=== PATIENT | female | born 1950 | race Caucasian/White ===

== ENCOUNTER 2024-01-09 18:19 | Emergency (ER) | payer MEDICARE, OTHER, SELFPAY ==
--- NOTE | 2024-01-09 18:21 | ED.FEMALEGU ---
HPI - Female Genitourinary General Chief complaint: Urogenital-Female Stated complaint: UTI SYMPTOMS/EARS Time Seen by Provider: 01/09/24 18:20 Source: patient and family Mode of arrival: ambulatory Limitations: no limitations History of Present Illness HPI Narrative: Janet is a 73-year-old female patient presenting to the clinic today with complaints of possible UTI and ear pain pressure pulsating sensation-states she can hear her heartbeat in her ears. Also has associated dizziness but that has since resolved. No history of Meniere's disease in the past. Reports that she has a possible urinary tract infection. Has started with urinary frequency and urgency and burning when she goes pee. She reports no known fever but has had some chills. He history of Sjogrens. No history of hyperlipidemia Related Data Home Medications Medication Instructions Recorded Confirmed hydroxychloroquine 200 mg tablet 200 mg PO BID 01/09/24 01/09/24 levothyroxine 112 mcg tablet 112 mcg PO DAILY 01/09/24 01/09/24 Allergies Allergy/AdvReac Type Severity Reaction Status Date / Time codeine Allergy Unknown HIVES Verified 01/09/24 18:40 Sulfa (Sulfonamide Allergy Unknown Unknown Verified 01/09/24 18:40 Antibiotics) Review of Systems Review of Systems: Pertinent positives per HPI. Patient denies any fever, rash, headache, visual changes, cough, shortness of breath, chest pain, palpitations, nausea, vomiting, diarrhea, constipation, abdominal pain. PMFSH Family History Family History Father Malignant neoplasm of prostate Sibling Family history of dementia Family history of malignant neoplasm of breast in first degree relative Family history of malignant neoplasm of kidney Mother Family history of heart disease in male family member before age 55 Social History Social History Smoking status: Never smoker Alcohol intake: current Comments At the time of my signature, I reviewed and agree with the nursing past medical, surgical, social, and family history. There is no relevant family history pertinent to the patient complaint. Exam Narrative: General: Well-developed, well nourished, in no apparent distress Head: Normocephalic, atraumatic Eyes: Pupils equally round and reactive to light bilaterally, EOM intact, sclera and conjunctive clear, no discharge, lids normal Ears: TMs intact, mild bulging, opaque, ear canals clear, no drainage, grossly hearing normal. Nose: Nares patent, clear nasal discharge, moderate inflammation, no sinus tenderness. Mouth: Oral pharynx without lesions or masses, good dentition, MMM. Neck: Supple, trachea midline, no enlargement of anterior or posterior cervical nodes, no thyroid masses or goiter palpable. No carotid bruit or thrills palpable bilaterally Cardio: Regular rate and rhythm, s1 and s2 normal, no murmur appreciated. Resp: Clear to auscultation bilaterally, no rhonchi, rales, wheezing or rubs Abdomen: Soft, pliable, bowel sounds present in all quadrants, tender to palpation over the urinary bladder, no organomegly, no CVAT tenderness. Course Course Emergency Course: Portions of this record may have been created with voice recognition software. Level of Care: Express Care Visit Vital Signs Vital signs: Vital signs reviewed MDM - Female Genitourinary MDM Narrative Medical decision making narrative: At the time of visit patient is resting comfortably on the exam table. Patient appears to be nontoxic. Labs: Urinalysis is positive for 2+ leukocytes, nitrates, 2+ protein, 1+ blood, and trace ketone with a high specific gravity. Plan: I suspect patient has acute dizziness with pulsatile tinnitus and urinary tract infection. Symptoms may likely be due to an urinary tract infection so we will go ahead and treat infection with Augmentin. No bruits or
[2024-01-09 18:28] VITALS: BP 142/92; PULSE 102; RESP 16; TEMP 37.4; O2SAT 96
== END 2024-01-09 18:54 | disposition home or self-care (01) ==
PROVIDERS: Emergency Provider Nurse Practitioner Family
DX: N30.01 Acute cystitis with hematuria (principal); B96.20 Unspecified Escherichia coli [E. coli] as the cause of diseases classified elsewhere; H93.A3 Pulsatile tinnitus, bilateral; R42 Dizziness and giddiness; E03.9 Hypothyroidism, unspecified
CPT/HCPCS: 81003; 87077; 87086; 87186; 99213; G0463

== ENCOUNTER 2024-01-14 09:25 | Emergency (ER) | payer MEDICARE, OTHER, SELFPAY ==
--- NOTE | ~2024-01-14 | CT_ITS ---
EXAMINATION: CT cervical spine wo con DATE: 01/14/2024 10:53 INDICATION: Neck stiffness. Limited range of motion. Torticollis. TECHNIQUE: Computed tomography (CT) of the cervical spine was performed without intravenous contrast. Automated exposure control and iterative reconstruction technique were employed. The dose-length pro duct was 468.39 mGy-cm. COMPARISON: None FINDINGS: There is 7 degrees levocurvature of cervical spine. There is kyphosis of cervical spine. Th ere is 2 mm anterolisthesis of C4 on C5 and 2 mm retrolisthesis of C6 on C7. There is mild chronic an terior wedging of C6 vertebral body. There is moderately decreased disc height at C3-C4 and C4-C5, se verely decreased disc height at C5-C6 and C6-C7, and mildly decreased disc at C7-T1. The following di sc levels are specifically discussed: C2-C3: There is no uncovertebral joint osteoarthritis. There is severe bilateral facet joint osteoart hritis. There is mild left neural foraminal stenosis. There is no central canal stenosis. C3-C4: There is severe right and mild left uncovertebral joint osteoarthritis. There is severe bilate ral facet joint osteoarthritis. There is mild bilateral neural foraminal stenosis. There is mild cent ral canal stenosis. C4-C5: There is moderate right and severe left uncovertebral joint osteoarthritis. There is severe bi lateral facet joint osteoarthritis. There is mild bilateral neural foraminal stenosis. There is mild central canal stenosis. C5-C6: There is severe bilateral uncovertebral joint osteoarthritis. There is severe bilateral facet joint osteoarthritis. There is mild bilateral neural foraminal stenosis. There is mild central canal stenosis. C6-C7: There is severe bilateral uncovertebral joint osteoarthritis. There is moderate bilateral face t joint osteoarthritis. There is mild bilateral neural foraminal stenosis. There is mild central eli l stenosis. C7-T1: There is mild bilateral uncovertebral joint osteoarthritis. There is severe bilateral facet tee int osteoarthritis. There is mild bilateral neural foraminal stenosis. There is no central canal sten osis. IMPRESSION: 1. Severe cervical spondylosis. Reviewed, dictated and finalized at location A.
[2024-01-14 09:37] VITALS: BP 123/95; PULSE 98; RESP 18; TEMP 36.5; O2SAT 96
--- NOTE | 2024-01-14 09:51 | ED.GENADULT ---
HPI - General Adult General Chief complaint: Unspecified Stated complaint: stiff neck Time Seen by Provider: 01/14/24 09:51 Source: patient Mode of arrival: ambulatory Limitations: no limitations History of Present Illness HPI narrative: Janet is a 73-year-old female patient presenting to the emergency room with complaints of neck stiffness since Sunday. She reports she recently was treated for UTI in the [facility]. She is taking ciprofloxacin at this time. No headache. Related Data Home Medications Medication Instructions Recorded Confirmed hydroxychloroquine 200 mg tablet 200 mg PO BID 01/09/24 01/09/24 levothyroxine 112 mcg tablet 112 mcg PO DAILY 01/09/24 01/09/24 Allergies Allergy/AdvReac Type Severity Reaction Status Date / Time codeine Allergy Unknown HIVES Verified 01/14/24 09:48 Sulfa (Sulfonamide Allergy Unknown Unknown Verified 01/14/24 09:48 Antibiotics) Review of Systems Review of Systems: Pertinent positives per HPI. Patient denies any fever, chills, rash, headache, visual changes, dizziness, cough, runny nose, sore throat, shortness of breath, chest pain, palpitations, nausea, vomiting, diarrhea, constipation, abdominal pain, or any urinary issues. PMFSH Family History Family History Father Malignant neoplasm of prostate Sibling Family history of dementia Family history of malignant neoplasm of breast in first degree relative Family history of malignant neoplasm of kidney Mother Family history of heart disease in male family member before age 55 Social History Social History Smoking status: Never smoker Alcohol intake: current Comments At the time of my signature, I reviewed and agree with the nursing past medical, surgical, social, and family history. There is no relevant family history pertinent to the patient complaint. Exam Narrative: General: Well-developed, well nourished, in no apparent distress Head: Normocephalic, atraumatic Eyes: Pupils equally round and reactive to light bilaterally, EOM intact, sclera and conjunctive clear, no discharge, lids normal Ears: TMs intact and congested, ear canals clear, no drainage, grossly hearing normal. Nose: Nares patent, no discharge, no inflammation, no sinus tenderness. Mouth: Oropharynx without lesions or masses, good dentition, MMM. Neck: Supple, trachea midline, no enlargement of anterior or posterior cervical nodes, no thyroid masses or goiter palpable. Cardio: Regular rate and rhythm, s1 and s2 normal, no murmur appreciated. Resp: Clear to auscultation bilaterally anteriorly and posteriorly, no rhonchi, rales, wheezing or rubs Musculoskeletal: No deformity, non-tender to palpation, limited rom to the cervical spine- unable to full flex, hyperextend, or turn her head towards the right without significant pain, muscle strength strong and equal, peripheral pulse strong, no edema, no cyanosis, normal gait and station Course Course Emergency Course: Portions of this record may have been created with voice recognition software. Vital Signs Vital signs: Vital Signs Temperature 36.5 C 01/14/24 09:37 Pulse Rate 98 01/14/24 09:37 Respiratory Rate 18 01/14/24 09:37 Blood Pressure 123/95 H 01/14/24 09:37 Pulse Oximetry 96 01/14/24 09:37 Oxygen Delivery Room Air 01/14/24 09:37 Temperature 36.5 C 01/14/24 09:37 Pulse Rate 89 01/14/24 11:42 Respiratory Rate 17 01/14/24 11:42 Blood Pressure 144/77 H 01/14/24 11:42 Pulse Oximetry 98 01/14/24 11:42 Oxygen Delivery Room Air 01/14/24 09:37 Vital signs reviewed Medical Decision Making MDM Narrative Medical decision making narrative: At the time of visit patient is resting comfortably on the exam table. Patient appears to be nontoxic. Labs: CBC shows white blood cell count 7.9, H&H of 13.5 and 42.
[2024-01-14 10:28] LABS: Basophils Absolute Auto 0.1 K/mm3 (0.0-0.1); Basophils Percent Auto 0.8 % (0.2-1.2); Eosinophils Absolute Auto 0.1 K/mm3 (0-0.3); Eosinophils Percent Auto 1.3 % (0-4.4); Hematocrit 42.9 % (37.0-47.0); Hemoglobin 13.5 g/dL (12.0-15.0); Immature Granulocyte Absolute 0.02 K/mm3 (0.00-0.031); Immature Granulocyte Percent A 0.3 % (0-0.5); Lymphocytes Absolute Auto 0.94 K/mm3 (0.9-3.2); Lymphocytes Percent Auto 11.9 % (18.3-44.2); Mean Corpuscular HGB Conc 31.5 g/dl (32-36); Mean Corpuscular Hemoglobin 29.2 pg (26-34); Mean Corpuscular Volume 92.9 fl (80-100); Mean Platelet Volume 10.6 fl (7.4-10.4); Monocytes Absolute Auto 0.5 K/mm3 (0.1-0.6); Monocytes Percent Auto 6.8 % (2.6-8.5); Neutrophils Absolute Auto 6.2 K/mm3 (1.3-6.7); Neutrophils Percent Auto 78.9 % (45.5-73.1); Platelet Count Result 193 k/mm3 (150-375); Red Blood Count 4.62 M/mm3 (4.2-5.4); Red Cell Distribution Width 13.1 % (11.5-14.5); White Blood Count 7.9 K/mm3 (4.5-10.0)
[2024-01-14 10:35] LABS: Appearance Urine Clear (Clear); Bacteria Urine None Seen /hpf; Bilirubin Urine Negative (Negative); Blood Urine Negative (Negative); Color Urine Yellow (Yellow); Glucose Urine UA Negative (Negative); Ketones Urine Negative (Negative); Leukocyte Esterase Ur 1+ LEU/UL (Negative); Nitrate Urine Negative (Negative); Non Pathogenic Casts 0-2; Protein Urine Negative (Negative); RBC Urine 0-2 /hpf (0-2); Specific Grav Ur 1.015 (1.001-1.035); Squamous Epithelial Cell Urine None Seen /hpf (Few); Urobilinogen Urine 0.2 mg/dL (<2.0)
[2024-01-14 10:43] LABS: Alanine Aminotransferase 15 U/L (6-35); Albumin Level 4.7 g/dL (3.5-5.1); Alkaline Phosphatase 88 U/L (38-126); Anion Gap 6 mmol/L (4-12); Aspartate Amino Transferase 20 U/L (14-36); Bilirubin,Total 1.3 mg/dL (0.2-1.3); Blood Urea Nitrogen 15 mg/dL (7-17); Calcium 9.8 mg/dL (8.4-10.2); Carbon Dioxide 28 mmol/L (22-30); Chloride 107 mmol/L (98-107); Estimated CRCL calculation 66 ml/min; Estimated Glomerular Filt Rate > 60; Glucose 120 mg/dL (65-110); Potassium 3.9 mmol/L (3.4-5.0); Sodium 141 mmol/L (137-145)
[2024-01-14 10:45] LABS: Add Urine Microscopic? YES
--- NOTE | 2024-01-14 11:05 | PC.NURSE ---
Report given to Connie CARLTON, all questions answered
[2024-01-14 11:42] VITALS: BP 144/77; PULSE 89; RESP 17; O2SAT 98
[2024-01-14 12:58] VITALS: BP 129/76; PULSE 71; RESP 18; TEMP 36.8; O2SAT 99
== END 2024-01-14 12:59 | disposition home or self-care (01) ==
PROVIDERS: Emergency Provider Nurse Practitioner Family
DX: M43.6 Torticollis (principal); M47.812 Spondylosis without myelopathy or radiculopathy, cervical region; R82.998 Other abnormal findings in urine
CPT/HCPCS: 36415; 72125; 80053; 81001; 85025; 87086; 99284

== ENCOUNTER 2024-06-12 09:33 | Emergency (ER) | payer MEDICARE, OTHER, SELFPAY ==
[2024-06-12 09:47] VITALS: BP 127/69; PULSE 85; RESP 16; TEMP 36.4; O2SAT 98
--- NOTE | 2024-06-12 09:48 | ED.ABDPAIN ---
HPI - Abdominal Pain General Chief Complaint: Urogenital-Female Stated Complaint: Uti Symptoms Source: patient, RN notes reviewed and old records reviewed Mode of arrival: ambulatory Limitations: no limitations History of Present Illness HPI narrative: Patient presents with complaints of urinary frequency and burning that began yesterday. She has had 1 UTI in the past, states that this feels the same. She denies fever, chills, sweats. Denies nausea or vomiting. Denies any back pain or abdominal pain. Denies any ayanna hematuria. Related Data Home Medications Medication Instructions Recorded Confirmed hydroxychloroquine 200 mg tablet 200 mg PO BID 01/09/24 06/12/24 levothyroxine 112 mcg tablet 112 mcg PO DAILY 01/09/24 06/12/24 cholecalciferol (vitamin D3) 125 125 mcg PO DAILY 06/12/24 06/12/24 mcg (5,000 unit) tablet (Vitamin D3) multivitamin 1 tablet PO DAILY 06/12/24 06/12/24 Allergies Allergy/AdvReac Type Severity Reaction Status Date / Time codeine Allergy Unknown HIVES Verified 06/12/24 09:43 Sulfa (Sulfonamide Allergy Unknown Unknown Verified 06/12/24 09:43 Antibiotics) Review of Systems Review of Systems: All systems reviewed & are unremarkable except as noted in HPI and below Constitutional: Constitutional: Reports no additional constitutional complaints ENT: Reports system reviewed and no additional complaints, except as documented Cardiovascular: Cardiovascular: Reports no additional cardiovascular complaints Respiratory: Respiratory: Reports no additional respiratory complaints Gastrointestinal: Gastrointestinal: Reports no additional gastrointestinal complaints Genitourinary: Genitourinary: Reports no additional female genitourinary complaints, Reports as per HPI, Reports dysuria and Reports urinary urgency [facility] Family History Family History Father Malignant neoplasm of prostate Sibling Family history of dementia Family history of malignant neoplasm of breast in first degree relative Family history of malignant neoplasm of kidney Mother Family history of heart disease in male family member before age 55 Social History Social History Smoking status: Never smoker Alcohol intake: current Comments At the time of my signature, I reviewed and agree with the nursing past medical, surgical, social, and family history. There is no relevant family history pertinent to the patient complaint. Exam Const: General: cooperative, no acute distress, alert and awake Orientation/consciousness: oriented to person, oriented to place and oriented to time HENMT: Head: normal to inspection Resp: Effort & Inspection: normal respiratory effort and able to speak in complete sentences Auscultation: clear to auscultation bilaterally, no crackles, no rales, no rhonchi and no wheezes Cardio: Palpation: normal PMI Rate: regular rate Rhythm: regular rhythm Heart sounds: S1 normal heart sound present and S2 normal heart sound present : General: Yes bladder normal to palpation and Yes no CVA tenderness Neuro: General: oriented to person, oriented to place and oriented to time Cranial nerves: Yes CN's II-XII intact bilaterally Psych: Appearance: grossly normal Thought process: Normal thought process present Insight: Good insight present (Psych) Judgement: Good judgement present (Psych) Course Course Level of Care: Express Care Visit Vital Signs Vital signs: Reviewed MDM - Abdominal Pain MDM Narrative Medical decision making narrative: UA indicative of UTI. Culture sent. Start Macrobid. Patient is nontoxic appearing, no bladder tenderness or CVA tenderness on exam. Stable for discharge home on p.o. antibiotic therapy, follow-up primary care provider. Discharge instructions reviewed with patient, as well as provided in writing per nursing staff. The instructions
[2024-06-12 09:57] LABS: EDUAAPPEAR Cloudy; EDUABILI Negative; EDUABLOOD 1+; EDUACOLOR1 Light/Pale; EDUAGLUCOSE Negative; EDUAKETONE Negative; EDUALEUKO 2+; EDUANITRATE Positive; EDUAPROTEIN 2+; EDUAUROBILI 0.2
== END 2024-06-12 10:05 | disposition home or self-care (01) ==
PROVIDERS: Emergency Provider Nurse Practitioner Family
DX: N39.0 Urinary tract infection, site not specified (principal); B96.20 Unspecified Escherichia coli [E. coli] as the cause of diseases classified elsewhere; M19.90 Unspecified osteoarthritis, unspecified site; E03.9 Hypothyroidism, unspecified; Z96.643 Presence of artificial hip joint, bilateral
CPT/HCPCS: 81003; 87077; 87086; 87088; 87186; 99213; G0463

== ENCOUNTER 2024-07-20 10:09 | Emergency (ER) | payer MEDICARE, OTHER, SELFPAY ==
[2024-07-20 10:24] VITALS: BP 118/70; PULSE 78; RESP 16; TEMP 36.6; O2SAT 98
--- NOTE | 2024-07-20 10:59 | ED_ITS ---
HPI - URI/Sore Throat General Chief Complaint: Upper Respiratory Infection Stated Complaint: Strep Symptoms Time Seen by Provider: 07/20/24 10:59 History of Present Illness HPI Narrative: 74 y/o female presented for c/o sore throat x3 days. states it started scratchy now feels painful swallow, and post nasal drainage. Denies cough, sob, wheezing, n/v/d/f/c. No meds needed for symptoms. Related Data Home Medications Medication Instructions Recorded Confirmed hydroxychloroquine 200 mg tablet 200 mg PO BID 01/09/24 07/20/24 levothyroxine 112 mcg tablet 112 mcg PO DAILY 01/09/24 07/20/24 cholecalciferol (vitamin D3) 125 125 mcg PO DAILY 06/12/24 07/20/24 mcg (5,000 unit) tablet (Vitamin D3) Allergies Allergy/AdvReac Type Severity Reaction Status Date / Time codeine Allergy Unknown HIVES Verified 07/20/24 11:02 Sulfa (Sulfonamide Allergy Unknown Unknown Verified 07/20/24 11:02 Antibiotics) Review of Systems Review of Systems: CONSTITUTIONAL: Denies body aches, fever, chills, or sweats. EYES: Denies visual changes, redness, or discharge. ENT: Reports sore throat postnasal drainage CARDIOVASCULAR: Denies chest pain, palpitations, or edema. RESPIRATORY: Denies dyspnea. GASTROINTESTINAL: Denies abdominal pain, nausea, vomiting, or diarrhea. SKIN: Denies rash, itching, or wounds. MUSCULOSKELETAL: Denies back pain, joint pain, or myalgia. NEUROLOGIC: Denies headache PMF Past Medical History Medical History (Updated 07/20/24 @ 11:44 by Dania Sneed APRN) Hypothyroid Family History Family History Father Malignant neoplasm of prostate Sibling Family history of dementia Family history of malignant neoplasm of breast in first degree relative Family history of malignant neoplasm of kidney Mother Family history of heart disease in male family member before age 55 Social History Social History Smoking status: Never smoker Alcohol intake: current Exam Narrative: GENERAL: well-appearing, no acute distress. EYES: conjunctivae clear ENT: Mucous membranes moist. TM pearly [place] with normal light reflex bilaterally; no tragal tenderness. Oropharynx not erythematous without lesions. Tonsils not enlarged and without exudate. No drooling, no hoarseness, no trismus, uvula midline. No tripod positioning, hot potato voice, or soft palate swelling. NECK: Supple. No lymphadenopathy CHEST: Clear to auscultation, breath sounds equal. No respiratory distress, speaks in full sentences. HEART: Regular rate and rhythm. No murmur heard. SKIN: Warm, dry, no rash. NEURO: Alert and oriented x3. Course Course Emergency Course: Patient is aware of diagnosis, understands and agrees to treatment plan. Anticipatory guidance given. Patient agrees to follow-up as directed and is aware of reasons to seek care at the emergency department. Portions of this record may have been created with voice recognition software Level of Care: Express Care Visit Vital Signs Vital signs: Vital Signs Temperature 97.8 F 07/20/24 10:24 Pulse Rate 78 07/20/24 10:24 Respiratory Rate 16 07/20/24 10:24 Blood Pressure 118/70 07/20/24 10:24 Pulse Oximetry 98 07/20/24 10:24 Temperature 97.8 F 07/20/24 10:24 Pulse Rate 78 07/20/24 10:24 Respiratory Rate 16 07/20/24 10:24 Blood Pressure 118/70 07/20/24 10:24 Pulse Oximetry 98 07/20/24 10:24 MDM - URI/Sore Throat MDM Narrative Medical decision making narrative: Neg strep result reviewed with pt. Advise supportive treatments. Patient is appropriate for outpatient treatment and follow-up. Differential Diagnosis Differential diagnosis: Likely upper respiratory infection, sinusitis, viral infection and pharyngitis Discharge Plan Discharge Clinical Impression: Upper respiratory infection Patient Disposition: Home, Self-Care Condition: Stable Instructions: Antibiotic Form, Upper Respiratory Infection (ED) Additional Instructions: Rapid strep swab was negative today You will be notified in a few days if the culture comes back positive for strep, and appropriate antibiotics will be called in at that time. if symptoms are due to a viral illness, it is not treated with antibiotics. Viral symptoms can be present for up to 10-14 days. Recommend Flonase spray and Zyrtec for sinus congestion Cough syrup may cause drowsiness; avoid driving or take it at night time. Tylenol every 8 hours as needed for pain/fever Soft foods, cool liquids, warm tea. Gargle with warm saltwater twice a day. C hloraseptic spray and throat lozenges. Rest and stay hydrated. --Follow up with your PCP --Go to the ER immediately if you cannot swallow your saliva, trouble breathing/wheezing, throat swelling, pain is persistent and severe Prescriptions: No Action cholecalciferol (vitamin D3) [Vitamin D3] 125 mcg (5,000 unit) Tablet 125 mcg PO DAILY hydroxychloroquine 200 mg tablet 200 mg PO BID levothyroxine 112 mcg tablet 112 mcg PO DAILY Follow-up/Referrals: PHYSICIAN,NETWORK SYSTEMS CONSULTANT [Primary Care Provider] - Time of Disposition: 11:42
[2024-07-20 11:46] LABS: EDSTREPNEGPOS1 Negative (Negative)
== END 2024-07-20 11:44 | disposition home or self-care (01) ==
PROVIDERS: Emergency Provider Nurse Practitioner Family
DX: J06.9 Acute upper respiratory infection, unspecified (principal); E03.9 Hypothyroidism, unspecified
CPT/HCPCS: 87081; 87880; 99213; G0463